=== PATIENT | female | born 1955 | race Caucasian/White ===

== ENCOUNTER 2017-09-12 11:36 | Emergency (ER) | payer OTHER, SELFPAY ==
[2017-09-12] VITALS (8 sets, daily range): BP systolic 104–144; BP diastolic 42–86; PULSE 63–74; RESP 10–20; TEMP 36.6; O2SAT 92–100; BMI 28.5
--- NOTE | 2017-09-12 11:46 | RAD_ITS ---
STUDY: X-RAY - RIGHT WRIST REASON FOR EXAM: Female, 61 years old. Status post fall TECHNIQUE: 3 view(s) of the wrist were obtained. COMPARISON: November 19, 2014 right wrist x-ray FINDINGS: There is a comminuted intra-articular fracture with foreshortening of the distal radius. There is a widened appearance of the radial ulnar joint. There is a positive ulnar variance. There is dorsal displacement of the distal radial fragment. The lateral view demonstrates dorsal tilt with volar apex angulation. There is a visualized nondisplaced fracture of the ulna. Normal carpal bones. Normal carpal articulations. There is degenerative arthrosis of the carpometacarpal articulation of the thumb. Normal second through fifth carpometacarpal articulations. Normal visualized metacarpal bones. Soft tissue swelling and deformity. RAD/Wrist min 3 Views IMPRESSION: Comminuted volar angulated displaced intra-articular fracture of the distal radius with dorsal tilt. Ulnar styloid process fracture. Electronically Signed: Dorina Hawkins MD at 12:31 EDT Tel , Service support ,
[2017-09-12] MEDS: morphine 8 MG/ML Syringe SC ×2 (11:51→12:34)
[2017-09-12] MEDS: Ondansetron ODT 4 MG Tablet PO ×2 (11:52→14:09)
--- NOTE | 2017-09-12 11:57 | ED.VISSUMM ---
- ER Visit Summary Date of Service: 09/12/17 Chief Complaint: [] Right wrist injury after fall History of Present Illness: The patient is a 61 F [] 8 feet up in a basket retractor device she fell out of it used her right hand to brace her fall she has right wrist pain she has no other past history she reports, she has no head neck chest or abdominal pain or other complaints on the right wrist pain Physical Examination: [] She is holding her right wrist appears to be an obvious deformity to the wrist or head neck chest abdomen unremarkable no neck pain no chest or abdominal pain no other extremity pain she has full range of motion of the other extremities the right upper extremity the shoulder arm elbow forearm unremarkable she has moderate to severe right wrist pain she has difficulty with flexion extension of the fingers like the pain she is able to extend her thumb and flex her thumb Test Results: [] Emergency Department Course and Treatment: [] His x-ray shows a comminuted displaced distal radius fracture spoke with Dr. Rogers orthopedics came and saw the patient recommended conscious sedation reduction, the patient underwent conscious sedation protocol, hyperoxygenated incremental doses of propofol fentanyl and Versed 1 septic effect reduction was noted no complications she awoke without any difficulties had no complication during the procedure vital signs and pulse ox remained within normal ranges she will follow-up as instructed to return for change in symptoms Reevaluation she is resting cupping the bed she is awake alert questions have been answered she will follow-up neurovascular function is normal Treatment Plan: [] Disposition: [] Home stable Impression: [] Comminuted displaced right distal radius fracture requiring conscious sedation and reduction This note was generated with [employer] dictation software. It may contain incorrect words, spelling, and punctuation that were not noted in review of the chart prior to signing ED Disposition - Plan for ED Patient: Chief Complaint: Upper Extremity Injury Referrals: Du Ashley MD [Primary Care Provider] -
[2017-09-12] MEDS: fentaNYL 100 MCG/2 ML Ampul 50 MCG IV ×2 (13:10)
[2017-09-12] MEDS: 0.9% Normal Saline 1,000 ML 999 ML IV (13:10)
[2017-09-12] MEDS: Propofol 200 MG/20 ML Vial IV BOLUS (13:10)
[2017-09-12] MEDS: Midazolam 2 MG/2 ML Syringe IV (13:10)
--- NOTE | 2017-09-12 13:24 | PCM.CONS.GEN ---
Reason for Consult Date of Consultation: 09/12/17 Reason for Consultation: requested by dr barron. 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 Patient sustained a abrasion to the right lateral leg and had a immediate deformity to her right wrist. Patient reports pain around the distal radius. Patient does have some generalized numbness which has been stable since the injury and not progressive. Digits are warm and pink. Pain is worse with motion better with immobilization. Associated ecchymosis and swelling. 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 Lives: Spouse/ Significant Other Smoking Status: Current every day smoker Alcohol: Rare Drugs: None Review of Systems Constitutional: Denies: Chills, Fever, Weight Change HEENT: Denies: Head Aches, Sinus Congestion, Sinus Drainage Cardiovascular: Denies: Chest Pain, Palpitations Respiratory: Denies: Cough, Shortness of breath at rest, Sputum production Gastrointestinal: Denies: Abdominal Pain, Nausea, Vomiting Genitourinary: Denies: Dysuria Musculoskeletal: Reports: - - See HPI Skin: Denies: Rash, Wounds Neurological: Denies: Numbness, Tingling, Focal weakness Psychiatric: Denies: Anxiety, Depression, Homicidal Ideations, Suicidal Ideations Hematologic/ Lymphatic: Denies: Easy Bruising, Easy Bleeding Objective: X-rays prereduction of the right wrist reveal comminuted intra-articular distal radius fracture with dorsal displacement. Postreduction fluoroscopy films reveal well reduced fracture within acceptable limits. - Physical Exam General: Alert, Oriented x3, Cooperative Extremities: - - Right upper extremity: Patient has marked deformity of the forearm with swelling and ecchymosis associated. Sensations grossly intact light touch R/M/U. Motor is intact R/M/U distally. 2+ radial pulse. Digits are warm and pink with brisk cap refill. Vital Signs Temp Pulse Resp BP Pulse Ox 97.9 F 70 18 119/75 100 09/12/17 11:37 09/12/17 13:10 09/12/17 13:10 09/12/17 13:10 09/12/17 13:10 Oxygen Flow Rate (L/min) 2 Oxygen Delivery Method Nasal Cannula Weight: 156 lb Body Mass Index (BMI) 28.5 Assessment/Plan Right intra-articular distal radius fracture Based on the fracture pattern discussed the patient treatment options including open reduction internal fixation and closed reduction splinting with transition to casting. Express my concerns with the fracture pattern instability with close reduction with possible loss of reduction with the patient however did recommend this is initial treatment. Patient does state understanding was able to sign informed consent. She does understand loss of reduction is a very high possibility of as well as pain and swelling. After appropriate consent patient was closed reduced in the emergency department see procedure note below. Live fluoroscopy was used to verify the fracture reduction and patient was placed in an AP splint which was well molded. She will follow-up in the office at the end of this week for x-ray check. We will plan on the splint for 2-3 weeks depending on fracture stability and healing noted with transition to a short arm cast in the future. Total of 6 weeks immobilization followed by intense physical therapy for range of motion. Patient demonstrates an understanding with this treatment plan. She will continue to ice and elevate above the level of her heart until seen in the office. Up in the office at the end of this week. Procedure: Conscious sedation was administered by the emergency room physician. Right arm was in manipulated with traction and reduction maneuver in order to reduce the fracture. Once the fracture was felt to be adequately reduced live x-ray was used to check the fracture reduction. Once we verified fracture reduction in appropriate pressure points for three-point mold an AP splint was placed on the wrist and an aggressive three-point mold was placed. Plaster was allowed to cure and final x-rays showed well reduced fracture within acceptable limits. On postreduction exam patient can cross her fingers, give an okay sign and give thumbs up. Sensations grossly intact light touch R/M/U distally.
--- NOTE | 2017-09-12 13:24 | ED.DEP ---
ED Disposition - Plan for ED Patient: Chief Complaint: Upper Extremity Injury Instructions: ED Fx Colles Wrist Redu Requ Prescriptions: Oxycodone HCl/Acetaminophen [Percocet 5/325] 1 tab PO Q6H PRN PRN 5 Days #20 tab PRN Reason: Pain Referrals: Du Ashley MD [Primary Care Provider] - Babak Rogers MD [STAFF PHYSICIAN] -
--- NOTE | 2017-09-12 13:35 | RAD_ITS ---
STUDY: Fluoroscopic RIGHT WRIST REASON FOR EXAM: Female, 61 years old. TECHNIQUE: 2 view(s) of the wrist were obtained. COMPARISON: September 12, 2017 wrist x-ray FINDINGS: 2 fluoroscopic views of the wrist were provided. There is limited visualization of the wrist soft tissues. There is an offset appearance of the distal radius. RAD/Wrist 2 Views IMPRESSION: Fluoroscopy showing limited views of the radius. Electronically Signed: Dorina Hawkins MD at 13:53 EDT Tel , Service support ,
--- NOTE | 2017-09-12 13:43 | CON.PCM_ITS ---
Reason for Consult Date of Consultation: 09/12/17 Reason for Consultation: requested by dr barron. 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 Patient sustained a abrasion to the right lateral leg and had a immediate deformity to her right wrist. Patient reports pain around the distal radius. Patient does have some generalized numbness which has been stable since the injury and not progressive. Digits are warm and pink. Pain is worse with motion better with immobilization. Associated ecchymosis and swelling. 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 Lives: Spouse/ Significant Other Smoking Status: Current every day smoker Alcohol: Rare Drugs: None Review of Systems Constitutional: Denies: Chills, Fever, Weight Change HEENT: Denies: Head Aches, Sinus Congestion, Sinus Drainage Cardiovascular: Denies: Chest Pain, Palpitations Respiratory: Denies: Cough, Shortness of breath at rest, Sputum production Gastrointestinal: Denies: Abdominal Pain, Nausea, Vomiting Genitourinary: Denies: Dysuria Musculoskeletal: Reports: - - See HPI Skin: Denies: Rash, Wounds Neurological: Denies: Numbness, Tingling, Focal weakness Psychiatric: Denies: Anxiety, Depression, Homicidal Ideations, Suicidal Ideations Hematologic/ Lymphatic: Denies: Easy Bruising, Easy Bleeding Objective: X-rays prereduction of the right wrist reveal comminuted intra-articular distal radius fracture with dorsal displacement. Postreduction fluoroscopy films reveal well reduced fracture within acceptable limits. - Physical Exam General: Alert, Oriented x3, Cooperative Extremities: - - Right upper extremity: Patient has marked deformity of the forearm with swelling and ecchymosis associated. Sensations grossly intact light touch R/M/U. Motor is intact R/M/U distally. 2+ radial pulse. Digits are warm and pink with brisk cap refill. Vital Signs Temp Pulse Resp BP Pulse Ox 97.9 F 70 18 119/75 100 09/12/17 11:37 09/12/17 13:10 09/12/17 13:10 09/12/17 13:10 09/12/17 13:10 Oxygen Flow Rate (L/min) 2 Oxygen Delivery Method Nasal Cannula Weight: 156 lb Body Mass Index (BMI) 28.5 Assessment/Plan Right intra-articular distal radius fracture Based on the fracture pattern discussed the patient treatment options including open reduction internal fixation and closed reduction splinting with transition to casting. Express my concerns with the fracture pattern instability with close reduction with possible loss of reduction with the patient however did recommend this is initial treatment. Patient does state understanding was able to sign informed consent. She does understand loss of reduction is a very high possibility of as well as pain and swelling. After appropriate consent patient was closed reduced in the emergency department see procedure note below. Live fluoroscopy was used to verify the fracture reduction and patient was placed in an AP splint which was well molded. She will follow-up in the office at the end of this week for x-ray check. We will plan on the splint for 2-3 weeks depending on fracture stability and healing noted with transition to a short arm cast in the future. Total of 6 weeks immobilization followed by intense physical therapy for range of motion. Patient demonstrates an understanding with this treatment plan. She will continue to ice and elevate above the level of her heart until seen in the office. Up in the office at the end of this week. Procedure: Conscious sedation was administered by the emergency room physician. Right arm was in manipulated with traction and reduction maneuver in order to reduce the fracture. Once the fracture was felt to be adequately reduced live x -ray was used to check the fracture reduction. Once we verified fracture reduction in appropriate pressure points for three-point mold an AP splint was placed on the wrist and an aggressive three-point mold was placed. Plaster was allowed to cure and final x-rays showed well reduced fracture within acceptable limits. On postreduction exam patient can cross her fingers, give an okay sign and give thumbs up. Sensations grossly intact light touch R/M/U distally.
--- NOTE | 2017-09-12 14:09 | NURSING ---
PT BECAME SUDDENLY NAUSEATED PRIOR TO LEAVING DEPARTMENT. SECOND DOSE OF ZOFRAN REQUESTED. MEDICATION GIVEN IN TRIAGE. FAMILY INFORMED THAT THEY SHOULD WATCH PATIENT CLOSELY DUE TO THE RECENT SEDATION AND LARGE DOSE ON OPIOID MEDICATIONS. FAMILY MEMBER EXPRESSED UNDERSTANDING. Emerson WARREN RN.
== END 2017-09-12 14:05 | disposition home or self-care (01) ==
PROVIDERS: Emergency Provider Emergency Medicine; Family Provider Family Medicine; PCP Family Medicine
DX: S52.571A Other intraarticular fracture of lower end of right radius, initial encounter for closed fracture (principal); S80.811A Abrasion, right lower leg, initial encounter; W17.89XA Other fall from one level to another, initial encounter; Y93.9 Activity, unspecified; Y92.9 Unspecified place or not applicable; K21.9 Gastro-esophageal reflux disease without esophagitis; F17.200 Nicotine dependence, unspecified, uncomplicated
CPT/HCPCS: 25605; 73100; 73110; 96361; 96372; 96374; 96375; 99156; 99284; J7030; A4216

== ENCOUNTER 2017-09-14 06:17 | Emergency (ER) | payer OTHER, SELFPAY ==
--- NOTE | 2017-09-14 06:17 | DT_ITS ---
This patient was seen during an EMR downtime September 13, 2017 - September 20, 2017. This patient may have a combination of paper and electronic documentation or all paper documentation. All documentation is viewable within the e-chart portion of [facility] for each patient visit.
--- NOTE | 2017-09-14 06:50 | RAD_ITS ---
STUDY: X-RAY - RIGHT WRIST REASON FOR EXAM: Female, 62 years old. Fracture TECHNIQUE: 3 view(s) of the wrist were obtained. COMPARISON: 09/12/2017 FINDINGS: Since the previous study, patient has undergone closed reduction of the previously described multi fragmented osteochondral fracture of the distal radius and associated ulnar styloid fracture. Alignment at the fracture sites is nearly anatomic. There is no longer evidence of positive ulnar variance. Follow-up recommended to assure complete osseous union. Persistent arthrosis noted at the radial scaphoid joint space, at the base of the thumb, and between the carpal bones. RAD/Wrist min 3 Views IMPRESSION: After closed reduction, patient shows near anatomic alignment of previously described fractures in the distal radius and ulna. Follow-up recommended to assure complete osseous union. Electronically Signed: Shree Ordoñez MD at 13:51 EDT , Service support ,
== END 2017-09-14 07:35 | disposition home or self-care (01) ==
LOC: ED 09-15 16:47
PROVIDERS: Emergency Provider Emergency Medicine; Family Provider Family Medicine; PCP Family Medicine
DX: S52.501A Unspecified fracture of the lower end of right radius, initial encounter for closed fracture (principal); X58.XXXA Exposure to other specified factors, initial encounter; K21.9 Gastro-esophageal reflux disease without esophagitis
CPT/HCPCS: 29125; 73110; 99283

== ENCOUNTER 2022-03-07 10:21 | Emergency (ER) | payer MEDICARE, SELFPAY ==
[2022-03-07 10:22] VITALS: BP 145/87; PULSE 83; RESP 16; TEMP 36.7; O2SAT 97; BMI 28.7
[2022-03-07] MEDS: Tetracaine 0.5% Ophthalmic Bottle 1 DRP LEFT EYE (11:22)
[2022-03-07] MEDS: Fluorescein 1 MG STRIP 1 STRIP LEFT EYE (11:22)
--- NOTE | 2022-03-07 11:23 | EX.ED.VIS.EY ---
HPI History of Present Illness Chief Complaint: Eye Problem Informant: patient Narrative Narrative: 66-year-old female presenting to the emergency room with left eye discomfort. She has a history of glaucoma-thought she was putting her eyedrops then but instead it was nail glue. This occurred last night. She washed her eye got large globs of glue out. She does not wear contacts or glasses. She sees Dr. Crabtree for ophthalmology. [facility] Medical History GERD (gastroesophageal reflux disease) GERD (gastroesophageal reflux disease) Glaucoma Home Medications omeprazole 20 mg capsule,delayed release 20 mg PO DAILY PRN gerd 09/12/17 [History Last Taken Unknown] latanoprost 0.005 % eye drops 1 drp EACH EYE DAILY 03/07/22 [History Last Taken Unknown] rkceufkziilb-lzafucdn-usnynn tablet (Multivitamin 50 Plus tablet) 1 tab PO DAILY 03/07/22 [History Last Taken Unknown] Allergy/AdvReac Type Severity Reaction Status Date / Time No Known Allergies Allergy Verified 03/07/22 10:22 Social History Smoking Status: Current every day smoker tobacco type: cigarettes ROS ROS ED Constitutional Constitutional ED: Denies chills, fever(s) or weight loss Eyes Eyes: Reports blurry vision and other Details: See history of present illness ; Denies change in vision or diplopia ENT ENT ED: Denies ear pain, rhinorrhea or sore throat Cardiovascular Cardiovascular: Denies chest pain, orthopnea, palpitations or racing heartbeat Respiratory/Chest Respiratory/Chest: Denies cough, dyspnea or orthopnea Gastrointestinal Gastrointestinal: Denies abdominal pain, diarrhea, nausea or vomiting Genitourinary Genitourinary ED: Denies dysuria, hematuria or urinary frequency Musculoskeletal Musculoskeletal: Denies arthralgias or myalgias Integumentary Denies abscess or rash Neurologic Neurologic: Denies headache(s) or weakness Psychiatric Psychiatric: Denies anxiety, depression, suicidal ideation or suicidal thoughts Endocrine Endocrinology: Denies polydipsia, polyphagia or polyuria Allergic/Immunologic Allergic/Immunologic ED: Denies mouth swelling, tongue swelling or urticaria EXAM Physical Exam Narrative Exam Narrative: Slit-lamp examination was performed Const Vital Signs: 03/07/22 10:22 Temperature 98.1 F Temperature Source Temporal Pulse Rate 83 Respiratory Rate 16 Blood Pressure 145/87 H Blood Pressure Mean 106 Pulse Ox 97 Oxygen Delivery Method Room Air Positive well nourished and well developed General Appearance ED: well developed HEENT Reports normocephalic, head/scalp atraumatic and moist mucous membranes Eyes PERRL and EOMs intact bilaterally Eyes Narrative: Left conjunctiva is injected. There is a corneal abrasion at the 11 o'clock position. I do not see any obvious foreign bodies at this time. Neck no lymphadenopathy, supple and no JVD Resp normal respiratory effort and clear to auscultation bilaterally Cardio regular rate, regular rhythm and no murmurs GI normal to inspection, nondistended, normoactive bowel sounds and non-tender Palpation: soft Back/Spine no CVA tenderness and normal ROM Extremity normal to inspection General Extremety ED: Negative for edema General Extremity: Negative for edema Neuro oriented x3 and CN's II-XII intact bilaterally Sensorium / Orientation: alert Motor Exam: strength 5/5 throughout Psych mental status grossly normal Mood & Affect: Negative for depressed or tearful Skin no rashes or lesions noted and no wounds MDM MDM MDM Narrative Medical decision making narrative: Patient will use erythromycin ophthalmic ointment. Follow-up with ophthalmology in 3 to 5 days Discharge Plan Triage Chief Complaint: Eye Problem ED Provider: Tyler Leggett Dx/Rx/DC Orders Prescriptions: No Action omeprazole 20 MG capsule 20 mg PO DAILY PRN (Reason: gerd) oxycodone-acetaminophen 1 TABLET tablet 1 tab PO Q6H PRN PRN (Reason: Pain) 5 Days Qty: 20 0RF Primary Care Provider: Du Ashley Referrals: Du Ashley MD [Primary Care Provider] -
[2022-03-07 11:28] VITALS: RESP 16
[2022-03-07] MEDS: Erythromycin Base 1 OPTH.TUBE 1 APPLIC LEFT EYE (11:36)
== END 2022-03-07 11:38 | disposition home or self-care (01) ==
PROVIDERS: Emergency Provider Emergency Medicine; PCP Family Medicine; Visit Provider Emergency Medicine
DX: S05.02XA Injury of conjunctiva and corneal abrasion without foreign body, left eye, initial encounter (principal); K21.9 Gastro-esophageal reflux disease without esophagitis; F17.210 Nicotine dependence, cigarettes, uncomplicated; Z79.899 Other long term (current) drug therapy; X58.XXXA Exposure to other specified factors, initial encounter
CPT/HCPCS: 99282

== ENCOUNTER → 2023-06-07 | Outpatient (CLI) | payer MEDICARE, SELFPAY ==
--- NOTE | 2023-06-07 10:55 | RAD_ITS ---
STUDY: X-RAY CHEST REASON FOR EXAM: Female, 67 years old. Gastroesophageal reflux disease. Cough. TECHNIQUE: Frontal and lateral views of the chest. COMPARISON: None. FINDINGS: The lungs are clear and expanded. There is no demonstrated pleural abnormality. Borderline cardiomegaly. Normal mediastinum and alis. Normal visualized pulmonary arteries. Aortic tortuosity with minimal calcification. Thoracic osteopenia with anterior wedge compression deformities of multiple mid thoracic vertebral bodies with increased kyphosis. Normal visualized ribs, clavicles, and shoulders. No abnormality of the visualized soft tissue structures of the upper abdomen. RAD/Chest PA and Lateral IMPRESSION: Borderline cardiomegaly with no acute or active cardiopulmonary disease. Electronically Signed: Jarett Landon MD at 9:31 EST ,
--- OUTSIDE RECORDS SUMMARY | 2023-06-07 18:07 | XMS RPT_ITS | CCD ---
Author Name Unknown Address [address] [place] [address] Organization [facility] Care Team Providers Care Radio Interference Trouble Shooter Name Role Phone Du Banda Unavailable Unavailable Unavailable Unavailable Unavailable Du Banda MD Primary Care Provider Du Banda MD Unavailable DU BANDA Primary Care Unavailable Medications Current Medications Medication Drug Class(es) Dates Sig (Normalized) Sig (Original) latanoprost 0.05 mg/ml ophthalmic solution (1 source) Prostaglandin Analog Start: 03-17-2022 take 1 drop(s) into the eye(s) once daily latanoprost (Xalatan) 0.005 % ophthalmic solution Administer 1 drop into both eyes once daily. 0 03/17/2022 Active predniSONE 10 mg oral tablet (1 source) Start: 07-20-2022 End: 07-26-2022 take 6 tablets by mouth once daily, then take 5 tablets by mouth once daily, then take 4 tablets by mouth once daily, then take 3 tablets by mouth once daily, then take 2 tablets by mouth once daily, then take 1 tablet by mouth once daily predniSONE (Deltasone) 10 mg tablet Indications: Radiculopathy due to lumbar intervertebral disc disorder Take 6 tablets (60 mg) by mouth once daily for 1 day, THEN 5 tablets (50 mg) once daily for 1 day, THEN 4 tablets (40 mg) once daily for 1 day, THEN 3 tablets (30 mg) once daily for 1 day, THEN 2 tablets (20 mg) once daily for 1 day, THEN 1 tablet (10 mg) once daily for 1 day. 21 tablet 0 07/20/2022 07/26/2022 Active rosuvastatin calcium 5 mg oral tablet (4 sources) HMG-CoA Reductase Inhibitor Start: 05-02-2021 End: 07-20-2022 take 1 tablet by mouth once daily rosuvastatin (Crestor) 5 mg tablet Indications: Hyperlipidemia, unspecified hyperlipidemia type Take 1 tablet (5 mg) by mouth once every day. 90 tablet 3 07/20/2022 Active 12 hr timolol 5 mg/ml ophthalmic solution (1 source) beta-Adrenergic Ravin Start: 06-24-2022 take 1 drop(s) into the eye(s) once daily timolol (Timoptic) 0.5 % ophthalmic solution Administer 1 drop into the right eye once daily. 0 06/24/2022 Active Completed/Discontinued Medications Medication Drug Class(es) Dates Sig (Normalized) Sig (Original) omeprazole, bulk, 100 % powder (1 source) End: 07-20-2022 take 1 capsule by mouth once daily as needed omeprazole, bulk, 100 % powder Take 1 capsule by mouth once daily as needed. 0 07/20/2022 Discontinued (Entered in Error) Shingrix 50 MCG Intramuscular Suspension Reconstituted (4 sources) Start: 04-29-2021 inject 50 ug by intramuscular injection once daily Shingrix 50 MCG Intramuscular Suspension Reconstituted INJECT 50 MCG Daily Quantity: 1 Refills: 1 Ordered: 29-Apr-2021 Du Banda MD Start : 29-Apr-2021 Active Problems Active Problems Problem Classification Problem Date Documented Da te Episodic/Chronic Anxiety disorders (12 sources) Anxiety disorder; Translations: [Anxiety state, unspecified] Onset: 05-27-2022 07-20-2022 Chronic Past or Other Problems Problem Classification Problem Date Documented Da te Episodic/Chronic Unclassified (1 source) Onset: 07-20-2022 07-20-2022 Results Test Name Value Interpretation Reference Range Facil ity Vital Signs Date Time Vital Sign Value Performing Clinician Facility 07-20-2022 11:03-0400 Body height 156.2 cm Du Banda MD Work Phone: [facility] 07-20-2022 11:03-0400 Body mass index (BMI) [Ratio] 28.72 kg/m2 Du Banda MD Work Phone: [facility] 07-20-2022 11:03-0400 Body temperature 97.2 [degF] Du Banda MD Work Phone: [facility] 07-20-2022 11:03-0400 Body weight 70.08 kg Du Banda MD Work Phone: [facility] 07-20-2022 11:03-0400 Diastolic blood pressure 65 mm[Hg] Du Banda MD Work Phone: [facility] 07-20-2022 11:03-0400 Heart rate 65 /min Du Banda MD Work Phone: [facility] 07-20-2022 11:03-0400 SaO2% (BldA) [Mass fraction] 96 % Du Banda MD Work Phone: [facility] 07-20-2022 11:03-0400 Systolic blood pressure 122 mm[Hg] Du Banda MD Work Phone: [facility] 04-29-2021 09:48-0500 Body height 154.94 cm Du Banda Work Phone: [facility] Work Phone: 04-29-2021 09:48-0500 Body mass index (BMI) [Ratio] 29.16 kg/m2 Du Banda Work Phone: [facility] Work Phone: 04-29-2021 09:48-0500 Body surface area Derived from formula 1.69 m2 Du Banda Work Phone: [facility] Work Phone: 04-29-2021 09:48-0500 Body temperature 97.7 [degF] Du Banda Work Phone: [facility] Work Phone: 04-29-2021 09:48-0500 Body weight 70 kg [facility]: 04-29-2021 09:48-0500 Diastolic blood pressure 81 mm[Hg] Du Banda Work Phone: [facility] Work Phone: 04-29-2021 09:48-0500 Heart rate 68 /min [facility]anda [facility] Work Phone: 04-29-2021 09:48-0500 Respiratory rate 16 /min Du Banda Work Phone: [facility] Work Phone: 04-29-2021 09:48-0500 SaO2% (BldA) [Mass fraction] 96 % Du Banda [facility] Work Phone: 04-29-2021 09:48-0500 Systolic blood pressure 131 mm[Hg] Du Banda [facility] Work Phone: Encounters Encounter Date Encounter Type Care Provider Facility Start: 07-20-2022 End: 07-21-2022 ambulatory DU BANDA [facility] Start: 07-20-2022 End: 07-20-2022 Assay of hemosiderin, quant Du Banda MD Work Phone: [facility] Work Phone: Start: 07-20-2022 End: 07-20-2022 Patient encounter procedure Du Banda MD Work Phone: [facility] Procedures Date Procedure Procedure Detail Performing Clinician Start: 07-20-2022 Comprehensive metabo lic 2000 panel - Serum or Plasma DU BANDA Start: 07-20-2022 Lipid panel DU Hernandez Start: 07-20-2022 TSH WITH REFLEX TO F REE T4 IF ABNORMAL DU BNADA Start: 07-20-2022 Lipid 1996 panel - S christina or Plasma Du Banda MD Work Phone: Start: 08-24-2018 Mammography Du hernandez MD Work Phone: Tonsillectomy Du Banda Work Phone: Plan of Treatment Date Care Activity Detail Author Start: 07-21-2027 Lipid panel Lipid Panel [facility] Start: 07-27-2023 End: 07-27-2023 Patient encounter procedure 07/27/2023 11:00 AM EDT Office Visit [facility] [address] [facility] [address] [place] [address] Du Banda MD [address] [facility] [facility] [place] [address] [facility] Start: 12-11-2022 Influenza vaccination Influenza Vaccine (Season Ended) [facility] Start: 07-20-2022 End: 09-20-2023 BI mammo bilateral screening tomosynthesis BI mammo bilateral screening tomosynthesis Imaging Routine Postmenopausal Encounter for screening mammogram for breast cancer Expected: 07/20/2022, Expires: 09/20/2023 [facility] Service Area Work Phone: Immunizations Immunization Date Immunization Notes Care Provider Fa cility 06-04-2020 Moderna SARS-CoV-2 Vaccination Du Banda MD Work Phone: [facility] 04-27-2020 Moderna SARS-CoV-2 Vaccination Du Banda MD Work Phone: [facility] Payers Date Payer Category Payer Medicare [employer] [id number] 2022-Present [address] [place] [address] [id number] 2022 Medicare [id number] 1955 Unknown [id number] Unknown [facility] Social History Date Type Detail Facility Start: 07-20-2022 End: 07-21-2022 Caffeine use Caffeine use [facility] Work Phone: Start: 07-20-2022 Tobacco smoking stat us COIS Smokes tobacco daily [facility] History of tobacco use Cigarette Smoker [facility] Work Phone: Start: 07-20-2022 Tobacco use and exposure Smokeless tobacco non-user [facility] Work Phone: Start: 07-21-2022 Alcohol intake Current drinke r of alcohol (finding) [facility] Work Phone: Start: 07-20-2022 Tobacco use panel [facility] Work Phone: Start: 1955 Sex Assigned At Female [facility] Start: 07-10-2022 End: 07-20-2022 Exposure to SARS-CoV-2 (event) Not sure [facility] Functional Status Date Assessment Result Facility 04-29-2021 PHQ-9 Adult Depressi on Score PHQ-9 Adult Depression Score 2 [facility] Work Phone: History of Present illness Narrative 07-20-2022 Du Banda MD - 07/20/2022 11:00 AM EDTSfernando Banda MD - 07/20/2022 11:00 AM EDT Note Date & Type Note Facility 07-20-2022 History of Present illness Narrative Subjective Patient ID: Radha Govea is a 66 y.o. female who presents for Medicare Annual Wellness Visit Subsequent (MWV, left leg, right elbow). HPI Patient mentions discomfort of her LLE and back, as well as left calf weakness. She denies chest pain, pressure, and tightness upon exertion. Patient notes decreased exercise in the winter, but increased in the summer. She states she has not been taking Rosuvastatin. Patient regularly takes eye drops and omeprazole as needed. She is still a smoker. Patient notes she has been forgetting to take her vitamin D. She is hesitant to obtain lab work. Patient will consider obtaining the shingles vaccine and the pneumonia vaccine. Review of Systems Constitutional: Negative. HENT: Negative. Eyes: Negative. Respiratory: Negative. Cardiovascular: Negative. Gastrointestinal: Negative. Endocrine: Negative. Genitourinary: Negative. Musculoskeletal: Positive for arthralgias and back pain. Skin: Negative. Allergic/Immunologic: Negative. Neurological: Negative. Hematological: Negative. Psychiatric/Behavioral: Negative. Objective BP 122/65 (BP Location: Left arm, Patient Position: Sitting, BP Cuff Size: Adult) Pulse 65 Temp 36.2 C (97.2 F) (Temporal) Ht 1.562 m (5' 1.5 ) Wt 70.1 kg (154 lb 8 oz) SpO2 96% BMI 28.72 kg/m Physical Exam Constitutional: Appearance: Normal appearance. HENT: Head: Normocephalic and atraumatic. Right Ear: Tympanic membrane normal. Left Ear: Tympanic membrane normal. Nose: Nose normal. Mouth/Throat: Mouth: Mucous membranes are moist. Pharynx: Oropharynx is clear. Eyes: Extraocular Movements: Extraocular movements intact. Conjunctiva/sclera: Conjunctivae normal. Pupils: Pupils are equal, round, and reactive to light. Cardiovascular: Rate and Rhythm: Normal rate and regular rhythm. Pulses: Normal pulses. Heart sounds: Normal heart sounds. Pulmonary: Effort: Pulmonary effort is normal. Breath sounds: Normal breath sounds. Abdominal: General: Bowel sounds are normal. Palpations: Abdomen is soft. Musculoskeletal: Cervical back: Normal range of motion and neck supple. Comments: Negative straight leg raise. Mild weakness when testing left calf muscle. Skin: General: Skin is warm. Neurological: Mental Status: She is alert and oriented to person, place, and time. Psychiatric: Mood and Affect: Mood normal. Behavior: Behavior normal. Assessment/Plan Diagnoses and all orders for this visit: BMI 28.0-28.9,adult Hyperlipidemia, unspecified hyperlipidemia type - Lipid Panel; Future - Comprehensive Metabolic Panel; Future - TSH with reflex to Free T4 if abnormal; Future - rosuvastatin (Crestor) 5 mg tablet; Take 1 tablet (5 mg) by mouth once every day. Postmenopausal - BI mammo bilateral screening tomosynthesis; Future - XR DEXA bone density; Future Anxiety disorder, unspecified type Abnormal mammogram - XR DEXA bone density; Future Anxiety associated with depression Radiculopathy due to lumbar intervertebral disc disorder - predniSONE (Deltasone) 10 mg tablet; Take 6 tablets (60 mg) by mouth once daily for 1 day, THEN 5 tablets (50 mg) once daily for 1 day, THEN 4 tablets (40 mg) once daily for 1 day, THEN 3 tablets (30 mg) once daily for 1 day, THEN 2 tablets (20 mg) once daily for 1 day, THEN 1 tablet (10 mg) once daily for 1 day. - XR lumbar spine complete 4+ views; Future Encounter for screening mammogram for breast cancer - BI mammo bilateral screening tomosynthesis; Future Screening for colorectal cancer - Cologuard colon cancer screening; Future Wellness examination - Follow Up In [facility] - PCP; Future Routine general medical examination at [facility] facility 1. Medicare wellness visit Today in the office she had your annual Medicare wellness visit We will give you an order for a Cologuard for colon cancer screening We will give you an order for mammogram for breast cancer screening We will give you an order for bone density test Please consider getting the pneumonia vaccine Prevnar 20. This can be done at my office or at the pharmacy. This has been shown to help prevent bacterial pneumonia along with complications from bacterial pneumonia You could also consider getting the shingles vaccine to prevent shingles Please restart the rosuvastatin 5 mg once a day every day to lower your cholesterol. By lowering your cholesterol you are reducing your risk for heart attack and stroke. Continue eating a heart healthy diet a diet rich with fresh fruit fresh vegetables lean proteins avoiding simple sugars and fast foods. And continue to stay active 30 minutes of activity every day is ideal certainly you would call if you have chest pain chest pressure chest tightness with your activities With your labs today we will check kidney function liver function blood sugar cholesterol and call you with those results You are having symptoms of sciatica down your left leg you are having left leg discomfort and pain. You may have a small amount of weakness in your left calf muscle compared to the right. I am recommending the exercises 1 that you will do with your back against a bench or countertop at your house where you will extend backwards and the other being on the floor doing a push-up with your abdomen on the floor to a count of 10. I would also recommend 6 days of prednisone If symptoms are not improving please call at which time he should have an x-ray and consider physical therapy If all your labs returned normal and you otherwise remain healthy I can see you back in 1 year for an annual wellness visit Scribed for Dr. Banda by Melissa Rollins, medical reviewer. I, Dr. Banda, have personally reviewed and agree with the information entered by the scribe. Subjective Reason for Visit: Radha Govea is an 66 y.o. female here for a Medicare Wellness visit. Past Medical, Surgical, and Family History reviewed and updated in chart. Reviewed all medications by prescribing practitioner or clinical pharmacist (such as prescriptions, OTCs, herbal therapies and supplements) and documented in the medical record. HPI Patient Care Team: Du Banda MD as PCP - General Du Banda MD as PCP - [employer] PCP Review of Systems Objective Vitals: BP 122/65 (BP Location: Left arm, Patient Position: Sitting, BP Cuff Size: Adult) Pulse 65 Temp 36.2 C (97.2 F) (Temporal) Ht 1.562 m (5' 1.5 ) Wt 70.1 kg (154 lb 8 oz) SpO2 96% BMI 28.72 kg/m Physical Exam Assessment/Plan Problem List Items Addressed This Visit Nervous Radiculopathy due to lumbar intervertebral disc disorder Relevant Medications predniSONE (Deltasone) 10 mg tablet Other Relevant Orders XR lumbar spine complete 4+ views Endocrine/Metabolic BMI 28.0-28.9,adult - Primary Other Abnormal mammogram Relevant Orders XR DEXA bone density Hyperlipidemia Relevant Medications rosuvastatin (Crestor) 5 mg tablet Other Relevant Orders Lipid Panel (Completed) Comprehensive Metabolic Panel (Completed) TSH with reflex to Free T4 if abnormal (Completed) Anxiety disorder Anxiety associated with depression Postmenopausal Relevant Orders BI mammo bilateral screening tomosynthesis XR DEXA bone density Screening for colorectal cancer Relevant Orders Cologuard colon cancer screening Other Visit Diagnoses Wellness examination Relevant Orders Follow Up In [facility] - PCP Routine general medical examination at health care facility documented in this encounter [facility] Work Phone: Instructions 07-20-2022 Patient Instructions Note Date & Type Note Facility 07-20-2022 Instructions Du Banda MD - 07/20/2022 11:00 AM EDT 1. Medicare wellness visit Today in the office she had your annual Medicare wellness visit We will give you an order for a Cologuard for colon cancer screening We will give you an order for mammogram for breast cancer screening We will give you an order for bone density test Please consider getting the pneumonia vaccine Prevnar 20. This can be done at my office or at the pharmacy. This has been shown to help prevent bacterial pneumonia along with complications from bacterial pneumonia You could also consider getting the shingles vaccine to prevent shingles Please restart the rosuvastatin 5 mg once a day every day to lower your cholesterol. By lowering your cholesterol you are reducing your risk for heart attack and stroke. Continue eating a heart healthy diet a diet rich with fresh fruit fresh vegetables lean proteins avoiding simple sugars and fast foods. And continue to stay active 30 minutes of activity every day is ideal certainly you would call if you have chest pain chest pressure chest tightness with your activities With your labs today we will check kidney function liver function blood sugar cholesterol and call you with those results You are having symptoms of sciatica down your left leg you are having left leg discomfort and pain. You may have a small amount of weakness in your left calf muscle compared to the right. I am recommending the exercises 1 that you will do with your back against a bench or countertop at your house where you will extend backwards and the other being on the floor doing a push-up with your abdomen on the floor to a count of 10. I would also recommend 6 days of prednisone If symptoms are not improving please call at which time he should have an x-ray and consider physical therapy If all your labs returned normal and you otherwise remain healthy I can see you back in 1 year for an annual wellness visit documented in this encounter [facility] Work Phone: Evaluation note Note Date & Type Note Facility documented in this encounter [facility] Work Phone: History of Present illness Narrative Note Date & Type Note Facility History of Present illness Narrative Past Medical, Surgical and Family History: reviewed and updated in chart.Medications and Supplements: Medications and supplements, including calcium and vitamins reviewed and updated in chart.No, the patient is not using opioids.Tobacco use: UserAlcohol use: As noted in social historyIllicit drug use: Non-UserCurrent diet: well balanced diet, does not consume adequate fluids and does consume caffeine.Exercise Frequency: occasionalDepression Screening:Patient Health Questionnaire - 2 (PHQ-2):.During the past 2 weeks, the patient has not felt down, depressed or hopeless.During the past 2 weeks, the patient has not felt little interest or pleasure in doing things.Hearing Impairment: none.Visual Acuity Uncorrected: both eyes 20/40, right eye 20/50, left eye 20/50.Activities of Daily Living: She does not have issues with activities of daily living (e.g. dressing, bathing, walking, shopping, housekeeping, etc.).Falls Risk Screening: RADHA has not fallen in the last 6 months.Home safety risk factors: no grab bars in the bathroom. [facility] Work Phone: History of Present illness Narrative Note Date & Type Note Facility History of Present illness Narrative Past Medical, Surgical and Family History: reviewed and updated in chart.Medications and Supplements: Medications and supplements, including calcium and vitamins reviewed and updated in chart.No, the patient is not using opioids.Tobacco use: UserAlcohol use: As noted in social historyIllicit drug use: Non-UserCurrent diet: well balanced diet, does not consume adequate fluids and does consume caffeine.Exercise Frequency: occasionalDepression Screening:Patient Health Questionnaire - 2 (PHQ-2):.During the past 2 weeks, the patient has not felt down, depressed or hopeless.During the past 2 weeks, the patient has not felt little interest or pleasure in doing things.Hearing Impairment: none.Visual Acuity Uncorrected: both eyes 20/40, right eye 20/50, left eye 20/50.Activities of Daily Living: She does not have issues with activities of daily living (e.g. dressing, bathing, walking, shopping, housekeeping, etc.).Falls Risk Screening: RADHA has not fallen in the last 6 months.Home safety risk factors: no grab bars in the bathroom. [facility] [email or web address] Phone: Reason for referral (narrative) Consultation (Routine) - Authorized Note Date & Type Note Facility Referral ID Status Reason Start Date Expiration Date V isits Requested Visits Authorized [id number] Authorized 07/20/2022 01/16/2023 1 1 * Imaging (Routine) - Authorized Specialty Diagnoses / Procedures Referred By Contac t Referred To Contact Radiology Diagnoses Radiculopathy due to lumbar intervertebral disc disorder Procedures XR lumbar spine complete 4+ views Du Banda MD [address] [place] [address], [facility] [address] [place] [address] Referral ID Status Reason Start Date Expiration Date Visits Requested Visits Authorized [id number] Authorized Perform Procedure 07/20/2022 01/16/2023 1 1 * Imaging (Routine) - Authorized Specialty Diagnoses / Procedures Referred By Contac t Referred To Contact Radiology Diagnoses Postmenopausal Abnormal mammogram Procedures XR DEXA bone density Du Banda MD [address] [place] [address], [facility] [address] [place] [address] Referral ID Status Reason Start Date Expiration Date Visits Requested Visits Authorized [id number] Authorized Perform Procedure 07/20/2022 01/16/2023 1 1 * Imaging (Routine) - Authorized Specialty Diagnoses / Procedures Referred By Contac t Referred To Contact Radiology Diagnoses Postmenopausal Encounter for screening mammogram for breast cancer Procedures BI mammo bilateral screening tomosynthesis Du Banda MD [address] [place] [address], [facility] [address] [place] [address] Referral ID Status Reason Start Date Expiration Date Visits Requested Visits Authorized [id number] Authorized Perform Procedure 07/20/2022 01/16/2023 1 1 [facility] Work Phone: Summary Purpose Family History No Family History Records FoundUnknown Family Member Name Dates Details : Father, Mother, Un reji, Cousin Status:Active Family history of chronic ob structive pulmonary disease: Mother(V17.6, Z82.5) Status:Active Family history of cardiac ar rhythmia: Mother(V17.49, Z82.49) Status:Active Unknown Family Member Name Dates Details : Father, Mother, Un reji, Cousin Status:Active Family history of chronic ob structive pulmonary disease: Mother(V17.6, Z82.5) Status:Active Family history of cardiac ar rhythmia: Mother(V17.49, Z82.49) Status:Active Unknown Family Member Name Dates Details : Father, Mother, Un reji, Cousin Status:Active Family history of chronic ob structive pulmonary disease: Mother(V17.6, Z82.5) Status:Active Family history of cardiac ar rhythmia: Mother(V17.49, Z82.49) Status:Active Unknown Family Member Name Dates Details Family history of chronic ob structive pulmonary disease: Mother(V17.6, Z82.5) Status:Active Family history of cardiac ar rhythmia: Mother(V17.49, Z82.49) Status:Active : Father, Mother, Un reji, Cousin Status:Active Advance Directives No Advanced Directives Records FoundNo Advanced Directives Records FoundNo Advanced Directives Records FoundNo Advanced Directives Records Found Chief Complaint * Pt is here for a Welcome to Medicare * Pt was given consent form and brochure * Qis/mammogram,colorectal * Patient declines flu shot today. * Pt is here for a Welcome to Medicare * Pt was given consent form and brochure * Qis/mammogram,colorectal * Patient declines flu shot today. Additional Source Comments INFORMATION SOURCE (unrecogn ized section and content) DATE CREATED AUTHOR AUTHOR'S ORGANIZ ATION 04/30/2021 [employer] DATE CREATED AUTHOR AUTHOR'S ORGANIZ ATION 07/23/2022 [facility] DATE CREATED AUTHOR AUTHOR'S ORGANIZ ATION 07/24/2022 [facility] [facility] Reason for Visit (unrecogniz ed section and content) Care Teams (unrecognized sec tion and content) FOR RECORDS PERTAINING TO PATIENTS WHO ARE OR HAVE BEEN ENROLLED IN A CHEMICAL DEPENDENCY/SUBSTANCEABUSE PROGRAM, SOME INFORMATION MAY BE OMITTED. This clinical summary was aggregated from multiple sources. Caution should be exercised in using it in the provision of clinical care. This summary normalizes information from multiple sources, and as a consequence, information in this document may materially change the coding, format and clinical context of patient data. In addition, data may be omitted in some cases. CLINICAL DECISIONS SHOULD BE BASED ON THE PRIMARY CLINICAL RECORDS. [employer] provides no warranty or guarantee of the accuracy or completeness of information in this document.
== END | disposition home or self-care (01) ==
LOC: RAD 10:50
PROVIDERS: PCP Family Medicine; Referring Provider Family Medicine; Visit Provider Family Medicine
DX: K21.9 Gastro-esophageal reflux disease without esophagitis (principal); R05.3 Chronic cough
CPT/HCPCS: 71046

== ENCOUNTER → 2023-06-15 | Outpatient (CLI) | payer MEDICARE, SELFPAY ==
--- NOTE | 2023-06-15 10:37 | BI_ITS ---
MAMMOGRAPHY - BILATERAL SCREENING 3-D TOMOSYNTHESIS REASON FOR EXAM: Female, 67 years old. SCREENING PERTINENT HISTORY: No significant family history. TECHNIQUE: 2-D mammograms and 3-D Tomosynthesis of the breast (s) were performed. CAD was performed. COMPARISON: 08/24/2018 FINDINGS: The breast composition is composed of scattered fibroglandular density. Scattered benign calcifications are seen. No dominant mass right breast. Subcentimeter oval circumscribed equal density mass in the lower inner quadrant left breast at mid depth and focal compression views recommended for further evaluation. No suspicious calcifications.. No architectural distortion is identified. There is no skin thickening or retraction. BI/SCRN MAMM (CAD)W/ENOC BILAT IMPRESSION: Further imaging evaluation is recommended. ASSESSMENT CATEGORY: BIRADS Category 0: Incomplete. Need additional imaging evaluation as above. A letter regarding these results will be sent to the patient by the facility within 30 days. FOLLOW UP RECOMMENDATION: Additional imaging recommended as above. (E) Approximately 10% of breast cancers are not detected by mammography. A normal mammogram should not delay biopsy of a clinically suspicious abnormality. Electronically Signed: Ben Cyr MD at 15:37 EST ,
== END | disposition home or self-care (01) ==
LOC: OPBI 10:35
PROVIDERS: PCP Family Medicine; Referring Provider Family Medicine; Visit Provider Family Medicine
DX: Z12.31 Encounter for screening mammogram for malignant neoplasm of breast (principal)
CPT/HCPCS: 77063; 77067

== ENCOUNTER → 2023-06-28 | Outpatient (CLI) | payer MEDICARE, SELFPAY ==
--- NOTE | 2023-06-28 09:22 | US_ITS ---
STUDY: ULTRASOUND BREAST - LEFT REASON FOR EXAM: Female, 67 years old. Abnormal screening mammogram. TECHNIQUE: Axial and longitudinal images of the LEFT breast were performed with a high resolution ultrasound transducer. # OF IMAGES: 43 COMPARISON: Comparison is made with prior mammogram done earlier in the day as well as prior mammogram dated June 15, 2023. FINDINGS: LEFT Breast: The inferior medial aspect of the left breast was examined with ultrasound. At the o''clock position of the breast at 5 cm from nipple, there is a 1.7 mm x 5.2 mm well-defined hypoechoic nodule. This most likely corresponds to the mammographic abnormality. This elongates on the sagittal view. This may represent a focal dilated duct. US/Breast Limited Unilateral IMPRESSION: The mammographic abnormality most likely corresponds to a focally dilated duct. A repeat sonogram in 4 months is recommended. ASSESSMENT CATEGORY: BIRADS Category 3: Probably Benign - Short-Interval Follow-up Suggested. A letter regarding these results will be sent to the patient by the facility within 30 days. Electronically Signed: David Hill MD at 8:59 EDT ,
--- NOTE | 2023-06-28 09:22 | BI_ITS ---
MAMMOGRAPHY - UNILATERAL DIAGNOSTIC: LEFT BREAST REASON FOR EXAM: Female, 67 years old. Abnormal screening mammogram. PERTINENT HISTORY: Non-contributory. TECHNIQUE: Compression spot views of the left breast in mediolateral oblique and craniocaudad projections were obtained. CAD: Full Field Digital Mammography with Computer Added Detection was performed. COMPARISON: Comparison is made with prior study June 15, 2023. FINDINGS: Breast Composition: The breasts are almost entirely fatty. Persistent 4 mm x 4 mm well-defined nodule in the slightly inferior medial aspect of the left breast. This may represent a small lymph node. Correlation with ultrasound is recommended. No other significant abnormalities are identified. BI/DIAG MAMM W/CAD, UNILAT IMPRESSION: Persistent 4 mm x 4 mm well-defined nodule in the slightly inferior medial aspect of the left breast as described. Correlation with ultrasound is recommended. ASSESSMENT CATEGORY: BIRADS Category 0: Incomplete. Need additional imaging evaluation. A letter regarding these results will be sent to the patient by the facility within 30 days. Approximately 10% of breast cancers are not detected by mammography. A normal mammogram should not delay biopsy of a clinically suspicious abnormality. Electronically Signed: David Hill MD at 10:32 EDT ,
== END | disposition home or self-care (01) ==
PROVIDERS: PCP Family Medicine; Referring Provider Family Medicine; Visit Provider Family Medicine
DX: R92.8 Other abnormal and inconclusive findings on diagnostic imaging of breast (principal)
CPT/HCPCS: 76642; 77065